=== PATIENT | female | born 1995 ===

== ENCOUNTER 2021-10-07 09:45 | Inpatient (IN) | payer OTHER ==
[2021-10-07] VITALS (39 sets, daily range): BP systolic 103–145; BP diastolic 55–88; PULSE 70–127; TEMP 97.8–99.7
[~2021-10-07] VITALS: Ht 175.3 cm; Wt 86.8 kg
--- NOTE | 2021-10-07 11:45 | NUR ---
1145 - PATIENT AMBULATORY TO LDR4 ACCOMPANIED BY SPOUSE. PATIENT ORIENTED TO ROOM. PATIENT CHANGES INTO GOWN. 1150 - PLAN OF CARE DISCUSSED WITH PATIENT. PATIENT DENIES CONTRACTIONS, LEAKING OF FLUID OR BLOODY SHOW. PATIENT REPORTS GOOD MOVEMENT. 1200 - PATIENT PLACED ON EFM. CONSENTS REVIEWED AND SIGNED. QUESTIONS ANSWERED. 1210 - IV PLACED. LABS OBTAINED ORDERED. LR INITIATED. 1230 - SVE PERFORMED . CARE ONGOING.
[2021-10-07] MEDS ORDERED: PRENATAL TABLET PO (11:57)
[2021-10-07 12:46] LABS: BASO % 0.2 % (0.0-2.0); EOS # 0.1 K/mm3 (0.0-0.7); EOS % 1.3 % (0.0-4.0); GRAN # 6.5 K/mm3 (1.4-6.5); GRAN % 70.3 % (42.2-75.2); LYMPH # 1.8 K/mm3 (1.2-3.4); LYMPH % 19.3 % (20.0-51.0); MEAN CELL VOLUME 88 fl (80.0-100.0); MEAN CORPUSCULAR HEMOGLOBIN 29 pg (27-31); MEAN CORPUSCULAR HGB CONC 34 g/dl (33.0-37.0); MEAN PLATELET VOLUME 10.8 fl (7.4-10.4); MONO # 0.8 K/mm3 (0.1-0.6); MONO % 8.4 % (1.7-9.3); PLATELET COUNT 197 K/mm3 (130-400); RED BLOOD COUNT 4.08 M/mm3 (4.10-5.30); REDCELL DISTRIBUTION WIDTH-CV 13.2 % (11.5-14.5)
[2021-10-07 12:48] LABS: HEMATOCRIT 35.7 % (37.0-47.0)
--- NOTE | 2021-10-07 14:15 | NUR ---
TOCO TRACING INDESCERNIBLE DUE TO MATERNAL POSITION. TOCO ADJUSTED. CARE ONGOING.
--- NOTE | 2021-10-07 15:55 | NUR ---
1555 - MD LINDA AT BEDSIDE. PLAN OF CARE DISCUSSED. QUESTIONS ANSWERED. 1600 - SVE PERFORMED BY MD LINDA. . AROM PERFORMED BY MD LINDA. HOLDEN CARE PERFORMED. PATIENT REPOSITIONED. CARE ONGOING.
--- NOTE | 2021-10-07 21:30 | NUR ---
2129- THIS RN TO BEDSIDE TO PLACE HARE AND CHECK PATIENT. 2134- HARE PLACED WITH NO COMPLICATIONS. PATIENT TOLERATED WELL. 2137- SVE 6-7//-1. 2142- PATIENT ASSISTED INTO RIGHT LATERAL POSITION WITH LEFT LEG UP IN THE STIRRUP. 2146- FHR LATE DECLERATION NOTED DOWN INTO THE 90S. PATIENT ASSISTED INTO RIGHT LATERAL POSITION. 2149- FHR LATE DECELERATION NOTED INTO THE 90S AGAIN. PATIENT ASSISTED INTO LEFT LATERAL POSITION AND FLUID BOLUS STARTED AT THIS TIME. Js WONG, RN TO BEDSIDE FOR ASSISTANCE AT THIS TIME. THIS RN REMAINS AT BEDSIDE TO MONITOR FHR AT THIS TIME. 2200- FHR AROUND 135-140 WITH EARLY DECELERATIONS NOTED WITH CONTRACTIONS AT THIS TIME. PATIENT DENIES NEEDS. CALL LIGHT WITHIN REACH.
--- NOTE | 2021-10-07 23:15 | NUR ---
2315- THIS RN TO BEDSIDE FOR SVE UPDATE. /-1. 2326- PATIENT ASSISTED PATIENT INTO WEDGE RIGHT POSITION. PATIENT TOLERATED WELL. DENIES FURTHER NEEDS. CALL LIGHT WITHIN REACH. 2333- PATIENT CALLS OUT STATING SHE IS GOING TO HIT HER EPIDURAL BUTTON FOR PRESSURE. 2335- THIS RN TO BEDSIDE. PATIENT DOING OKAY, JUST FEELING VAGINAL/RECTAL PRESSURE. 2338- LATE DECELERATION NOTED DOWN INTO THE 90S. THIS RN REPOSITIONED PATIENT TO LEFT LATERAL POSITION. 2340- LATE DECELERATION NOTED DOWN INTO THE 90S AGAIN AND PATIENT VOICING SHE IS FEELING MORE PRESSURE. 2341- SVE 8-9. VERY THIN AND STRETCHY CERVIX NOTED. GOOD HEAD DECENT NOTED WITH CONTRACTIONS. HELPED PATIENT INTO SITTING UP IN SEMI-FOWLERS POSITION. PATIENT DENIES FURTHER NEEDS. CALL LIGHT WITHIN REACH.
[2021-10-08] VITALS (22 sets, daily range): BP systolic 107–135; BP diastolic 57–89; PULSE 76–135; TEMP 97.7–99.4
--- NOTE | 2021-10-08 01:15 | NUR ---
0115- THIS RN TO BEDSIDE FOR SVE 0118- SVE, PATIENT COMPLETE. DISCUSSED PUSHING. THIS RN PREPPED PATIENT AND ROOM FOR PRACTICE PUSHING. THIS RN NOTIFIED OTHER STAFF WELL. 0130- FIRST PUSH WITH PATIENT. THIS RN REMAINS AT BEDSIDE PUSHING WITH PATIENT DURING CONTRACTIONS. 0142- HARE REMOVED AT THIS TIME WITH 175 URINE OUTPUT NOTED. PATIENT CONTINUED PUSHING WITH PATIENT. 0230- THIS RN CALLED PROVIDER, SEE PHYSICIAN NOTIFICATION. THIS RN UPDATED NURSERY WELL. 0235- NURSERY AND ADDITIONAL LABOR NURSE AT BEDSIDE WAITING FOR PROVIDER TO GET TO HOSPITAL. PATIENT BREATHING AND PANTING THROUGH CONTRACTIONS. 0245- PROVIDER TO BEDSIDE. PATIENT AND ROOM PREPPED FOR DELIVERY. 0250- OF VIABLE MALE . NUCHAL CORD X1. INFANT PLACED TO [facility] NURSERY NURSE ASSUMES CARE. CORD CLAMPED AND CUT. PITOCIN TURNED OFF AT THIS TIME PER PROTOCOL. 0254- OF PLACENTA. FUNDUS MASSAGE TO FIRM BY PROVIDER WITH MODERATE LOCHIA AND CLOTS NOTED AT THIS TIME. PROVIDER STRAIGHT CATHED PATIENT AT THIS TIME WELL. PITOCIN TURNED ON PER PROTOCOL AT 333ML/HR. 2ND DEGREE TEAR NOTED AND REPAIRED BY PROVIDER. PROVIDER NOTED EBL TO BE 300. 0305- FUNDUS FIRM, VITALS STABLE. PATIENT AND ROOM CLEANED UP AND PUT BACK TOGETHER. NEW CHUX, PERIPAD AND ICEPACK TO PERINEUM. RECOVERY STARTED.
[2021-10-09 07:00] VITALS: BP 116/73; PULSE 84; TEMP 98.1
[2021-10-09] MEDS ORDERED: IBU800 M1 PO (08:50)
--- NOTE | 2021-10-09 09:17 | NUR ---
Initial visit attempt; Physician with patient, she graciously took [employer]'s card informing the patient that Spiritual Care is available to patient and her family while she is a guest at our hospital. also offered congratulations on her card for the of the patient's son and God's blessings to the family.
[2021-10-09 17:30] VITALS: BP 127/82; PULSE 79; TEMP 97.9
[2021-10-09 20:15] VITALS: BP 118/79; PULSE 73; TEMP 98.2
[2021-10-10 07:30] VITALS: BP 118/75; PULSE 79; TEMP 98.2
[2021-10-10] MEDS ORDERED: ROXICODONE 55 MG/TAB PO (08:24)
--- NOTE | 2021-10-10 10:30 | NUR ---
Discharge instructions reviewed with patient and family who verbalize understanding.
== END 2021-10-10 10:45 | disposition home or self-care (01) | DRG 807 ==
LOC: LDR 10:55 → OB 11:37 → LDR 11:37 → OB 10-08 05:40 → LDR 10-08 09:44 → OB 10-10 10:45
PROVIDERS: ADMIT Obstetrics & Gynecology
PROC: 10E0XZZ Delivery of Products of Conception, External Approach (ICD-10-PCS; principal; 2021-10-07)
PROC: 0KQM0ZZ Repair Perineum Muscle, Open Approach (ICD-10-PCS; 2021-10-07)
PROC: 10907ZC Drainage of Amniotic Fluid, Therapeutic from Products of Conception, Via Natural or Artificial Opening (ICD-10-PCS; 2021-10-07)
PROC: 3E033VJ Introduction of Other Hormone into Peripheral Vein, Percutaneous Approach (ICD-10-PCS; 2021-10-07)
DX: O48.0 Post-term pregnancy (principal); Z37.0 Single live birth; O70.1 Second degree perineal laceration during delivery; O69.81X0 Labor and delivery complicated by cord around neck, without compression, not applicable or unspecified; Z3A.40 40 weeks gestation of pregnancy
CPT/HCPCS: J2590; J7120